=== PATIENT | female | born 1935 | race Caucasian/White ===

== ENCOUNTER → 2018-12-29 | Outpatient (CLI) | payer MEDICARE, OTHER ==
--- NOTE | 2018-12-29 16:03 | RAD ---
Examination: PET W CT SKULL TO MIDTHIGH History: Solitary pulmonary nodule initial evaluation Comparison/Correlation: 12/17/2011 CT abdomen and pelvis without contrast FINDINGS: Net dose 16.5 mCi F-18 FDG was administered intravenously for purposes of PET/CT exam. Blood glucose level at the time of radiotracer administration was 114 mg/dL. Imaging was performed from the skull base to the proximal thighs. Hepatic reference uptake is SUV max of 2.5 . Visualized head and neck is unremarkable with no abnormal uptake. At the anterior left upper lung field on axial image 34, there is a 0.6 cm diameter noncalcified nodule which does not have uptake. It is below limits of PET resolution however. On axial image 88, there is a 1.1 cm transverse by 0.8 cm anteroposterior nodule. SUV max of 3 is present. It is located along the inferior aspect of the right hilum No enlarged thoracic lymph nodes. Uptake of radiotracer along abdomen and pelvis is unremarkable. Multiple small calculi within the gallbladder are present near the neck. No radiopaque collecting system calculi. Abdominal aortic diameter is unremarkable. IMPRESSION: Mild uptake involving a right infrahilar pulmonary nodule. No uptake involving the left upper lung nodule. These are of indeterminate significance. Consider interval follow-up CT to assess stability. PQRS Compliance Statement: One or more of the following individualized dose reduction techniques were utilized for this examination: 1. Automated exposure control 2. Adjustment of the mA and/or kV according to patient size 3. Use of iterative reconstruction technique Electronically signed by: Ace Broderick MD (12/29/2018 4:00 PM) [facility]
== END | disposition home or self-care (01) ==
LOC: PETSC 09:30
PROVIDERS: ATTEND Family Medicine
DX: R91.1 Solitary pulmonary nodule (principal); K80.20 Calculus of gallbladder without cholecystitis without obstruction
CPT/HCPCS: 78815; A9552

== ENCOUNTER → 2019-04-10 | Outpatient (CLI) | payer MEDICARE, OTHER ==
--- NOTE | 2019-04-10 15:41 | RAD ---
CT CHEST WO CONTRAST Indication: Lung nodule. Exposure: One or more of the following individualized dose reduction techniques were utilized for this examination: 1. Automated exposure control 2. Adjustment of the mA and/or kV according to patient size 3. Use of iterative reconstruction technique. Technique: Standard imaging without intravenous contrast. Comparison: PET/CT scan of 12/29/2018. FINDINGS: Left upper lobe pulmonary nodule measures 8 mm, series 8, image 54. This demonstrates a groundglass morphology. Size is unchanged since previous study, as is appearance. Right infrahilar pulmonary nodule in the right lower lobe measures 15 mm x 13 mm on series 8, image 178. This is unchanged since the previous exam. Right upper lobe pulmonary nodule, series 8, image 170, probably unchanged although there was motion degradation on that exam limiting comparison of smaller nodules. Right lower lobe nodule, series 8, image 173 measures 7 x 4 mm, probably unchanged. Other small subcentimeter nodules are also seen in the right lung. Left lung base nodule, series 8, image 186 measures about 4 mm, difficult to see on prior study. Left lower lobe nodule measuring about 4 mm on series 8, image 140 grossly similar to previous study. No evidence of pneumothorax. Trachea and mainstem bronchi are patent. Limited vascular exam without contrast. Ascending aorta measures about 3.5 cm compatible with mild ectasia. Aorta is calcified. No gross aneurysm. Coronary artery calcifications. No evidence of pathologic axillary, hilar or mediastinal lymph node enlargement. Mild granulomatous mediastinal and hilar lymph node calcifications. No evidence of pleural effusion. No evidence of pericardial effusion. Degenerative spondylosis. No evidence of an acute fracture or subluxation. No aggressive bone destruction is seen. Scans to the upper abdomen are limited due to technique. Some density within the gallbladder near the neck and through the neck, may represent sludge or poorly calcified stones. IMPRESSION: 1. Multiple pulmonary nodules, appear grossly stable in size as compared with December 29, 2018. Recommend continued CT chest follow-up in 6 months. 2. Possible gallbladder sludge or cholelithiasis. Electronically signed by: Aman Staton MD (04/10/2019 3:38 PM) [id number]
== END | disposition home or self-care (01) ==
LOC: CT 09:08
PROVIDERS: ATTEND Internal Medicine Pulmonary Disease
DX: I70.0 Atherosclerosis of aorta (principal); R91.8 Other nonspecific abnormal finding of lung field; I25.10 Atherosclerotic heart disease of native coronary artery without angina pectoris; M47.814 Spondylosis without myelopathy or radiculopathy, thoracic region
CPT/HCPCS: 71250

== ENCOUNTER → 2019-05-09 | Outpatient (CLI) | payer MEDICARE, OTHER ==
[~2019-05-09] MED LIST: LIDOCAINE 2%/EPI 1:100,000 20 ML VIAL. ONE
--- NOTE | 2019-05-09 17:54 | RAD ---
Examination: 1. Diagnostic right breast ultrasound. 2. Right breast stereotactic core needle biopsy. 3. Right breast postprocedure mammogram. INDICATION: 83-year-old woman recommended for biopsy of developing calcifications in the posterior upper-outer quadrant right breast with a sonographic correlate. COMPARISON: Right diagnostic mammogram and targeted breast ultrasound of 04/23/2019, and screening mammogram of 10/19/2017. TECHNIQUE AND FINDINGS: Initial diagnostic right breast ultrasound was performed and identified 2 oval masses at the right 10:00 position 7 cm from the nipple respectively measuring 7 and 3 mm in diameter. These likely correlate with the ovoid clusters of developing calcification in the posterior upper outer right breast recalled from screening in ultimately recommended for biopsy but out of of an abundance of caution for minimizing the risk of nontarget biopsy, I elected to pursue biopsy of the suspicious calcifications with stereotactic imaging guidance, rather than by ultrasound despite the presence of a potentially suitable sonographic target. Informed consent was obtained and an appropriate procedural pause observed. Using standard sterile technique, stereotactic imaging guidance and local anesthesia with buffered lidocaine and lidocaine with epinephrine, multiple vacuum-assisted 9 gauge core biopsy samples of the calcifications in the posterior upper outer right breast were obtained from a craniocaudal approach. Intraprocedural stereotactic images showed a decrease in number of targeted calcifications following tissue sampling. Specimen radiograph confirmed presence of of targeted calcifications in the tissue sample after which a biopsy marker was deployed in the right breast. Hemostasis was then assured with direct breast compression for 10 minutes and the puncture site was dressed. 2-D postprocedure right mammogram in the CC, ML and MLO projections confirmed satisfactory sampling of the calcifications in the upper outer right breast with residual suspicious calcifications in the breast. There was apparent cephalad migration of the juliette shaped biopsy marker into the subcutaneous fat following withdrawal of the needle guide. Since the residual calcifications can serve as the target for any subsequent follow-up invasive procedures, I elected not to place an additional biopsy marker at this visit. Patient tolerated the procedure without incident. There were no apparent complications. Postprocedure instructions were reviewed and patient discharged in stable condition to follow-up with her primary care physician. IMPRESSION: Successful stereotactic biopsy of developing calcifications in the posterior upper outer quadrant right breast. Pathology results are pending. An addendum will be issued once pathology results become available.
--- NOTE | 2019-05-11 15:07 | PATHOLOGY ---
[facility] Accession Number: [id number] . 01 Material submitted: . breast - RIGHT BREAST CALCIFICATION. Modifiers: right . 01 Clinical history: . Right breast calcifications . 02 Diagnosis: Breast tissue, right breast needle biopsies: - Ductal carcinoma in situ, low-grade, cribriform type, with associated calcifications. - Periductal and focal confluent stromal fibrosis with focal mild duct ectasia. (JPM:kiln burner; 05/10/2019) MBR 05/10/2019 1544 Local . 02 Comment: Sections of the right breast needle biopsy reveal multiple segments of breast tissue. There are a few small foci of low-grade ductal carcinoma in situ of cribriform type. The largest of these foci measure approximately 3 mm in greatest dimension. DCIS shows associated pleomorphic calcifications. There is no evidence of invasive carcinoma. Breast prognostic studies will be obtained on block A4, the results of which will be reported separately. The case is also examined by Dr. Kaur, and concurs with the diagnosis. (JPM:kiln burner; 05/10/2019) . 02 Electronically signed: . Clinton Swann MD, Pathologist NPI- [id number] . 01 Gross description: . The specimen is received in formalin, labeled "Valery Bettencourt, right breast". Received are multiple needle cores of fibrofatty tissue measuring 2.8 x 2.7 x 0.6 cm in aggregate dimensions. Also received within the containers a plastic cassette containing multiple needle cores of fibrofatty tissue measuring 3.0 x 2.8 x 0.6 cm in aggregate dimensions. The suspect tissue is transferred to cassettes A1 and A2, with the remainder of the specimen submitted in cassettes A3 and A4. The cold ischemic time is 15 minutes. The total formalin for Station time is 10 hours and 40 minutes. (CAA; 05/09/2019) QAC/QAC 05/09/2019 1727 Local . 02 Pathologist provided ICD-10: D05.11, N60.31, N60.41 . 02 CPT . 114190 Specimen Comment: A courtesy copy of this report has been sent to [phone] Specimen Comment: [phone], Specimen Comment: Report sent to ,DR BABB / DR MILLER Performed at: 01 [facility] [address], [place] [id number] MD Alejandro Spear MD Phone: [phone] Performed at: [address] [facility] [address] [place] [id number] MD Clinton Swann MD Phone: [phone]
== END ==
LOC: US 09:52
PROVIDERS: ATTEND Surgery
DX: R92.8 Other abnormal and inconclusive findings on diagnostic imaging of breast (principal); D05.11 Intraductal carcinoma in situ of right breast; N60.31 Fibrosclerosis of right breast
CPT/HCPCS: 19081; 76641; 77022; 77065; C1713; 19085

== ENCOUNTER → 2019-05-31 | Day surgery (SDC) | payer MEDICARE, OTHER ==
[~2019-05-31] VITALS: Ht 167.6 cm; Wt 76.5 kg
[~2019-05-31] MED LIST changes: +ACETAMINOPHEN 500 MG TABLET PO ONE; +AMLO1TAB5 PO; +ASCO500C PO; +BUPIVACAINE-EPI 0.25%-1:200000 MPF 30 ML VIAL. INJ ONE; +CHOL3000 PO; +FERR325T14 PO; +HYDR-3164 PO; +HYDROcodone/APAP 5/325MG 1 TAB TABLET PO ONE; +HYDROmorphone 2 MG/ML VIAL IV PRN; +IV RINGERS,LACTATED 1000ML 1,000 ML IV SCH; +LEVO88TA4 PO; +LIDOCAINE 1% PF 2 ML VIAL. ID PRN; -LIDOCAINE 2%/EPI 1:100,000 20 ML VIAL. ONE; +LISI-338 PO; +MORPHINE SULFATE 2 MG/ML VIAL. IV PRN; +MULT-650 PO; +ONDANSETRON PF 4 MG/2 ML VIAL. IV PRN; +PROCHLORPERAZINE 10 MG/2 ML VIAL. IV PRN; +UBID100C26 PO; +ceFAZolin SODIUM IV Push 1 GM VIAL. IVP ONE; +fentaNYL PF VIAL 100 MCG/2 ML VIAL IV PRN
--- NOTE | 2019-06-04 17:06 | PATHOLOGY ---
[facility] Accession Number: [id number] . 01 Material submitted: . breast - RT BREAST LUMP SINGLE STITCH SHORT DEEP SINGLE LONG LAT TWO STITCH MEDIAL. Modifiers: right . 01 Clinical history: . Ductal carcinoma in situ right breast . 02 Diagnosis: Breast tissue, wire-localized right breast lumpectomy: - RESIDUAL DUCTAL CARCINOMA IN SITU, LOW-GRADE, CRIBRIFORM TYPE, FOCAL. - DUCTAL CARCINOMA IN SITU IS APPROXIMATELY 2 MM FROM THE CLOSEST MEDIAL MARGIN OF RESECTION. - Previous biopsy site changes showing biopsy marker with recent and remote hemorrhage, fat necrosis, and reactive fibrosis. - Atypical lobular hyperplasia, focal, approximately 1 mm from the closest inked medial margin of resection. - Fibrocystic changes with focal intraductal micropapilloma and mild/moderate ductal epithelial hyperplasia. - Sclerosing adenosis, focal. . (JPM:mml; 06/04/2019) [facility] 06/04/2019 1201 Local . 02 Comment: Sections of the wire-localized right breast lumpectomy reveal focal residual low-grade cribriform type ductal carcinoma in situ. DCIS is focally present in 2 of 11 sections submitted, the largest focus measuring approximately 1 cm. DCIS is approximately 2 mm from the closest inked medial margin of resection. There is also focal atypical lobular hyperplasia, which is approximately 1 mm from the closest inked medial margin of resection. . (JPM:mml; 06/04/2019) . 02 Electronically signed: . Clinton Swann MD, Pathologist NPI- [id number] . 01 Gross description: . The specimen is received in formalin, labeled "Valery Bettencourt, right breast lump, single stitch short-deep, single long-lateral, two medium stitch-medial". Received in a radiographic compression container is a 63 g lumpectomy specimen measuring 9.5 cm from superficial/anterior to deep/posterior, 5.8 cm from superior to inferior, and 2.0 cm from medial to lateral. There is a localization wire present, which enters through the anterior/medial aspect. The specimen is inked as follows: Superior-blue, inferior-green, lateral-red, medial-yellow, superficial/anterior-black, deep/posterior-orange. Sectioning reveals a previous biopsy site measuring 2.8 x 0.8 x 0.8 cm. This site is 1.7 cm from the superficial/anterior margin, 5.0 cm from the deep/posterior margin, 0.4 cm from the medial margin, 0.9 cm from the lateral margin, 2.3 cm from the superior margin, and 1.5 cm from the inferior margin. 2.0 cm posterior to the previous biopsy site, a single cystic structure is identified measuring 0.3 cm filled with friable material. The remainder of the specimen displays bright yellow fibrofatty cut surfaces, with the fibrous tissue comprising approximately 10% of the specimen. The specimen is submitted representatively as follows: . A1 most superficial/anterior margin, bisected A2 most deep/posterior margin, trisected A3-A10 entire previous biopsy site submitted from anterior to posterior aspects A11 cystic structure located posterior to previous biopsy site. . The cold ischemic time is 17 minutes. The total formalin fixation time is 34 hours and 20 minutes. (CAA; 06/01/2019) QAC/QAC 06/04/2019 1213 Local . 02 Pathologist provided ICD-10: D05.11, N60.11, N60.21, N62 . 02 CPT . 216904 Specimen Comment: A courtesy copy of this report has been sent to [phone] Specimen Comment: Report sent to Performed at: [address], [place], [place] [id number] MD Alejandro Spear MD Phone: [phone] [facility]formed at: [facility] [address] [place], [place] [id number] MD Clinton Swann MD Phone: [phone]
== END | disposition home or self-care (01) ==
LOC: SURG 07:14
PROVIDERS: ATTEND Surgery
DX: R92.0 Mammographic microcalcification found on diagnostic imaging of breast (principal); Z53.9 Procedure and treatment not carried out, unspecified reason
CPT/HCPCS: 88307; J3490

== ENCOUNTER → 2019-05-31 | Day surgery (SDC) | payer MEDICARE, OTHER ==
[~2019-05-31] MED LIST changes: -ACETAMINOPHEN 500 MG TABLET PO ONE; -BUPIVACAINE-EPI 0.25%-1:200000 MPF 30 ML VIAL. INJ ONE; +BUPIVACAINE-EPI 0.25%-1:200000 MPF 30 ML VIAL. ONE; +DEXAMETHASONE SOD PHOS 4 MG/ML VIAL ONE; -HYDROcodone/APAP 5/325MG 1 TAB TABLET PO ONE; -HYDROmorphone 2 MG/ML VIAL IV PRN; -IV RINGERS,LACTATED 1000ML 1,000 ML IV SCH; -LIDOCAINE 1% PF 2 ML VIAL. ID PRN; +LIDOCAINE 2% PF 5 ML VIAL. ONE; -MORPHINE SULFATE 2 MG/ML VIAL. IV PRN; -ONDANSETRON PF 4 MG/2 ML VIAL. IV PRN; +ONDANSETRON PF 4 MG/2 ML VIAL. ONE; -PROCHLORPERAZINE 10 MG/2 ML VIAL. IV PRN; +PROPOFOL 20 ML IV ONE; +SEVOFLURANE 31 TO 60 MINUTES. IH ONE; +SUCCINYLCHOLINE 200 MG/10 ML VIAL. ONE; -fentaNYL PF VIAL 100 MCG/2 ML VIAL IV PRN; +fentaNYL PF VIAL 100 MCG/2 ML VIAL ONE
--- NOTE | 2019-05-31 11:35 | PDOC4 ---
Operative Note Operative Note Date: 05/31/2019 at 1133 Preoperative diagnosis: Right breast carcinoma in situ Postoperative diagnosis: Same Procedure: Right breast lumpectomy with needle localization Surgeon: Preston Specimen: Right breast tissue Dictation: Patient is a 83-year-old female who had an abnormal mammogram biopsy showed ductal carcinoma in situ. Procedure of right breast lumpectomy with needle localization was explained to the patient detail was benefits were also discussed including bleeding infection alternatives to this procedure also discussed with the patient who seemed to understand and gave both verbal and written consent to have the procedure performed. Patient was taken to the operating room placed in the supine position general anesthesia was initiated once patient was sleepy right breast was prepped and draped usual sterile fashi on. An incision at the insertion site of the needle was made with 15 blade scalpel is carried down through the subcutaneous tissue following the needle and wire down to the distal site all this was excised with electrocautery and sent to radiology where x-ray was performed which showed the specimen contained the calcifications as previously seen on the mammogram. The wound was then closed in 2 layers the deep layer running 3-0 Vicryl and the skin was reapproximated 4- 0 subcuticular Monocryl Mastisol Steri-Strips and island dressing was applied. Patient was awakened extubated in the operating room taken to recovery in stable condition all sponge instrument needle counts listed as correct estimated blood loss 10 mL LINSEY CLAYTON MD May 31, 2019 11:35
--- NOTE | 2019-05-31 11:37 | DISCH ---
DISCHARGE INSTRUCTIONS Condition on Discharge Condition on Discharge: Stable Activity After Discharge Activity Instructions for Disc: Avoid exertion Diet after Discharge Diet after Discharge: Regular Wound Incision Care Other wound/incision instructi: May shower in 24 hours Contacting the after DC Call your doctor for: If your condition worsens Follow-Up Follow up with: Dr. Clayton in 2 weeks LINSEY CLAYTON MD May 31, 2019 11:37
--- NOTE | 2019-05-31 11:38 | RAD ---
Right breast specimen radiograph INDICATION: Status post lumpectomy for right breast DCIS. Specimen radiograph requested to assess specimen adequacy. COMPARISON: Earlier same day right diagnostic mammogram. FINDINGS: The tissue specimen contains the juliette shaped biopsy marker and targeted residual calcifications which lie between the E5 and F5 holes on the grid. The biopsy marker lies between E8 and F8. Both the biopsy marker and the residual calcifications lie adjacent to the hook wire. IMPRESSION: Surgical specimen contains the targeted calcifications, biopsy marker and hook wire with residual calcifications between E5 and F5 and biopsy marker between E8 and F8. Report telephoned to the operating room at approximately 11:34 AM 05/31/2019.
[2019-05-31 12:44] VITALS: BP 148/62
--- NOTE | 2019-05-31 13:17 | RAD ---
Examination: Right breast needle localization with mammographic guidance. INDICATION: 83-year-old woman with new diagnosis right breast DCIS, requested for preoperative needle localization prior to segmental mastectomy. COMPARISON: Post biopsy mammogram of 05/09/2019. TECHNIQUE AND FINDINGS: Informed consent was obtained and an appropriate procedural pause observed including an appropriate skin marking preoperatively. Using standard sterile technique, mammographic imaging guidance and local anesthesia, a 5 cm Pryor needle was advanced from a craniocaudal approach into the upper outer right breast, targeting the residual calcifications still evident postbiopsy. Follow satisfactory confirmation of appropriate needle positioning, a hookwire was placed through the needle, the needle withdrawn an additional postprocedure images acquired. These showed satisfactory positioning of the wire relative to the biopsy marker and the residual calcifications. No apparent complications. Patient was discharged from the imaging suite in good condition to follow-up with her referring surgeon. IMPRESSION: Successful right breast needle localization of biopsy-proven malignant calcifications in the upper-outer quadrant right breast. A specimen radiograph is recommended. It should contain the hookwire, residual calcifications and juliette shaped biopsy marker.
== END | disposition home or self-care (01) ==
LOC: SURG 07:24
PROVIDERS: ATTEND Surgery
DX: D05.11 Intraductal carcinoma in situ of right breast (principal); I10 Essential (primary) hypertension; E11.9 Type 2 diabetes mellitus without complications; E03.9 Hypothyroidism, unspecified; D64.9 Anemia, unspecified; E78.00 Pure hypercholesterolemia, unspecified; Z87.39 Personal history of other diseases of the musculoskeletal system and connective tissue; Z79.84 Long term (current) use of oral hypoglycemic drugs; Z98.42 Cataract extraction status, left eye; Z98.41 Cataract extraction status, right eye; Z96.1 Presence of intraocular lens
CPT/HCPCS: 19125; 19281; 76098; A7015; J0330; J0690; J1100; J2001; J2405; J2704; J3490; J7120; J3010

== ENCOUNTER → 2019-09-04 | Outpatient (CLI) | payer MEDICARE, OTHER ==
[2019-05-31 12:44] VITALS: BP 148/62
[~2019-09-04] MED LIST changes: -BUPIVACAINE-EPI 0.25%-1:200000 MPF 30 ML VIAL. ONE; -DEXAMETHASONE SOD PHOS 4 MG/ML VIAL ONE; -LIDOCAINE 2% PF 5 ML VIAL. ONE; -ONDANSETRON PF 4 MG/2 ML VIAL. ONE; -PROPOFOL 20 ML IV ONE; -SEVOFLURANE 31 TO 60 MINUTES. IH ONE; -SUCCINYLCHOLINE 200 MG/10 ML VIAL. ONE; -ceFAZolin SODIUM IV Push 1 GM VIAL. IVP ONE; -fentaNYL PF VIAL 100 MCG/2 ML VIAL ONE
--- NOTE | 2019-09-04 12:31 | [facility]IC ---
EXAM: Dual energy x-ray absorptiometry (DEXA). HISTORY: Postmenopausal female presents for osteoporosis screening. COMPARISON: None. TECHNIQUE: Dual energy x-ray absorptiometry of the lumbar spine and left hip was performed. Calculation of bone mineral density based on standard deviations above or below the expected young adult normal value (T-score) was completed. FINDINGS: The average bone mineral density in the 1st through 4th lumbar vertebrae is 0.979 g/cmxcm, corresponding with a T-score of -0.6. The average total bone mineral density in the right hip is 0.836 g/cmxcm, corresponding with a T-score of -0.9. IMPRESSION: Normal bone mineral density. Note: Definitions established by the World Health Organization: 1. Normal: T-score is -1.0 or above. 2. Osteopenia: T-score is between -1.0 and -2.5 . 3. Osteoporosis: T-score is -2.5 or below. Electronically signed by: Kathy Banuelos MD (09/04/2019 12:28 PM) [id number]
== END | disposition home or self-care (01) ==
LOC: KCIC DEXA 11:22
PROVIDERS: ATTEND Internal Medicine Hematology & Oncology
DX: M81.0 Age-related osteoporosis without current pathological fracture (principal); M85.88 Other specified disorders of bone density and structure, other site; C50.411 Malignant neoplasm of upper-outer quadrant of right female breast
CPT/HCPCS: 77080

== ENCOUNTER → 2019-09-27 | Outpatient (CLI) | payer MEDICARE, OTHER ==
[2019-05-31 12:44] VITALS: BP 148/62
[2019-09-27 11:39] LABS: BASO % 1 % (0-3); EOS # 0.1 x10^3/uL (0.0-0.7); EOS % 1 % (0-3); HEMATOCRIT 37.2 % (36.0-47.0); HEMOGLOBIN 12.7 g/dL (12.0-15.5); LYMPH # 1.6 x10^3/uL (1.0-4.8); LYMPH % 23 % (24-48); MEAN CORPUSCULAR HEMOGLOBIN 31 pg (25-35); MEAN CORPUSCULAR HGB CONC 34 g/dL (31-37); MEAN CORPUSCULAR VOLUME 91 fL (79-100); MONO # 0.5 x10^3/uL (0.0-1.1); MONO % 8 % (0-9); NEUT # 4.8 x10^3/uL (1.8-7.7); NEUT % 68 % (31-73); PLATELET COUNT 268 x10^3/uL (140-400); RED BLOOD COUNT 4.08 x10^6/uL (3.50-5.40); RED CELL DISTRIBUTION WIDTH 13.6 % (11.5-14.5); WHITE BLOOD COUNT 7.1 x10^3/uL (4.0-11.0)
[2019-09-27 11:59] LABS: CALCIUM 9.4 mg/dL (8.5-10.1); GFR 52.8
[2019-09-27 12:04] LABS: ALBUMIN 3.5 g/dL (3.4-5.0); DIRECT BILIRUBIN 0.1 mg/dL (0.0-0.2); TOTAL BILIRUBIN 0.5 mg/dL (0.2-1.0); TOTAL PROTEIN 7.5 g/dL (6.4-8.2)
== END | disposition home or self-care (01) ==
LOC: ONCLAB 10:13
PROVIDERS: ATTEND Physician Assistant
DX: C50.411 Malignant neoplasm of upper-outer quadrant of right female breast (principal)
CPT/HCPCS: 36415; 80048; 80076; 83615; 85025

== ENCOUNTER → 2019-10-05 | Outpatient (CLI) | payer MEDICARE, OTHER ==
[2019-05-31 12:44] VITALS: BP 148/62
--- NOTE | 2019-10-05 16:08 | RAD ---
Examination: CT CHEST WO CONTRAST History: Reason: LUNG NODULES / Spl. Instructions: / History: Comparison/Correlation: 12/29/2018 PET/CT exam, 04/10/2019 CT chest without contrast Findings: Axial images of the chest were obtained without contrast. Sagittal and coronal reformatted images were provided. Anterior left upper lung field nodule measuring 0.6 cm diameter is present with groundglass appearance similar to the previous exam. No significant change in size. Calcified granuloma involving the left upper lung field laterally measuring 0.4 cm diameter similar to the prior exam. Few punctate nodules at the right lateral mid thoracic level are stable. Right infrahilar noncalcified pulmonary nodule measuring up to 1.1 cm x 0.8 cm is stable. Calcific involvement of the left main, left anterior descending, and right coronary arteries is noted. Calcified left hilar lymph node is present. No pleural or pericardial effusion. High density within the deep aspect left adrenal gland adenomatous involvement is present. Of the gallbladder the gallbladder neck which appears represent small calculi noted. Right upper outer breast irregularly marginated masslike density measuring 2.6 cm x 1.4 cm is present. Impression: No change in pulmonary nodules since 12/29/2018 PET/CT exam. Interval follow-up in 9 months to assess stability recommended. Cholelithiasis. Right upper-outer breast irregular marginated soft tissue density is new since the previous CT exam. This corresponds to site of needle localization dated 05/31/2019. Correlate with clinical history. PQRS Compliance Statement: One or more of the following individualized dose reduction techniques were utilized for this examination: 1. Automated exposure control 2. Adjustment of the mA and/or kV according to patient size 3. Use of iterative reconstruction technique Electronically signed by: Ace Broderick MD (10/05/2019 4:05 PM) [facility]
== END | disposition home or self-care (01) ==
LOC: CT 10:13
PROVIDERS: ATTEND Internal Medicine Pulmonary Disease
DX: R91.1 Solitary pulmonary nodule (principal); K80.20 Calculus of gallbladder without cholecystitis without obstruction; N63.0 Unspecified lump in unspecified breast; J98.4 Other disorders of lung
CPT/HCPCS: 71250

== ENCOUNTER → 2019-10-25 | Outpatient (CLI) | payer MEDICARE, OTHER ==
[2019-05-31 12:44] VITALS: BP 148/62
[2019-10-25 11:13] LABS: CALCIUM 9.1 mg/dL (8.5-10.1); CREATININE 0.9 mg/dL (0.6-1.0); GFR 59.5; POTASSIUM 3.8 mmol/L (3.5-5.1)
[2019-10-25 11:19] LABS: ALBUMIN 3.4 g/dL (3.4-5.0); ALBUMIN/GLOBULIN RATIO 0.9 (1.0-1.7); TOTAL BILIRUBIN 0.5 mg/dL (0.2-1.0); TOTAL PROTEIN 7.4 g/dL (6.4-8.2)
== END | disposition home or self-care (01) ==
LOC: ONCLAB 10:36
PROVIDERS: ATTEND Physician Assistant
DX: C50.411 Malignant neoplasm of upper-outer quadrant of right female breast (principal); Z79.899 Other long term (current) drug therapy
CPT/HCPCS: 36415; 80053; 82306; 83615

== ENCOUNTER → 2019-11-07 | Outpatient (CLI) | payer MEDICARE, OTHER ==
[2019-05-31 12:44] VITALS: BP 148/62
--- NOTE | 2019-11-07 16:33 | RAD ---
DATE: 11/07/2019 9:29 AM EXAM: MAMMO OMARI DIAG RT HISTORY: Six-month follow-up post lumpectomy and radiation for right breast low-grade DCIS, cribriform type. She is currently on Letrozole. COMPARISON: Bilateral mammogram of 03/22/2019, right stereotactic biopsy images of 05/09/2019 including the postprocedure right diagnostic mammogram CC and MLO views of the right breast were performed. Breast tomosynthesis was performed in CC and MLO projections. This study was interpreted with the benefit of Computerized Aided Detection (CAD). FINDINGS: Breast Density: SCATTERED The breast parenchyma shows scattered fibroglandular densities. Breast parenchyma level B Interval surgical scar in the upper outer right breast is present with absence of the biopsy marker and targeted residual calcifications. Right breast skin thickening is also newly apparent, consistent with benign post treatment changes. IMPRESSION: Benign posttreatment changes in the right breast. No evidence of malignancy. BI-RADS CATEGORY: 2 BENIGN FINDING(S) RECOMMENDED FOLLOW-UP: 6M 6 MONTH FOLLOW-UP six-month follow-up recommended to resume annual mammographic screening PQRS compliance statement: Patient information was entered into a reminder system with a target due date for the next mammogram. Mammography is a sensitive method for finding small breast cancers, but it does not detect them all and is not a substitute for careful clinical examination. A negative mammogram does not negate a clinically suspicious finding and should not result in delay in biopsying a clinically suspicious abnormality. "Our facility is accredited by the [employer] Mammography Program."
== END | disposition home or self-care (01) ==
LOC: MAMMO 09:19
PROVIDERS: ATTEND Physician Assistant
DX: C50.411 Malignant neoplasm of upper-outer quadrant of right female breast (principal); R92.1 Mammographic calcification found on diagnostic imaging of breast; R23.4 Changes in skin texture; N64.89 Other specified disorders of breast
CPT/HCPCS: 77065; G0279; 77061

== ENCOUNTER → 2020-03-17 | Outpatient (CLI) | payer MEDICARE, OTHER ==
[2019-05-31 12:44] VITALS: BP 148/62
--- NOTE | 2020-03-17 13:04 | RAD ---
EXAM: Chest CT without intravenous contrast. HISTORY: Pulmonary nodule follow-up. TECHNIQUE: Computed tomographic images of the chest were obtained without contrast. Multiplanar refor matting was performed. *One or more of the following individualized dose reduction techniques were utilized for this examina tion: 1. Automated exposure control. 2. Adjustment of the mA and/or kV according to patient size. 3. Use of iterative reconstruction technique. COMPARISON: 10/05/2019 and 04/10/2019. FINDINGS: The heart is normal in size. There is calcified atherosclerotic plaque involving the byers ry arteries. There are few calcified mediastinal and hilar granulomas. There is no suspicious noncalc ified mediastinal or hilar lymph node. There is stable trace anterior pericardial fluid or pericardia l thickening. There is stable distal paraesophageal lymph nodes. There is aortic atherosclerosis. There is no pneumothorax or pleural effusion. There is left basilar atelectasis. There is a stable 8 mm groundglass nodule with adjacent 3 mm groundglass nodule within the lateral left upper lobe (serie s 8, images 47 and 50). There is a stable 6 mm solid nodule within the right lower lobe (series 8, im age 177). There is a stable 5 mm solid nodule within the right middle lobe (series 8, image 170). The re is a stable 5 mm irregular nodular opacity within the lateral right upper lobe (series 8, image 13 7). There is a stable 3 mm nodule within the lateral right upper lobe (series 8, image 72). There are few additional tiny peripheral and pleural-based nodular opacities within both lungs which are also stable in appearance. There is lingular pleural parenchymal scarring. 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 There is n o acute finding involving the upper abdomen. There is stable underwent thickening or small benign adr enal adenomas. There is suspected gallbladder sludge. There are degenerative changes throughout the s pine. There is no suspicious osseous lesion. IMPRESSION: 1. Multilevel stable bilateral pulmonary nodules, the largest of which include a groundglass nodule m easuring 8 mm within the left upper lobe and 6 mm nodule within the right lower lobe. The year of sta bility favors benignity. However, continued follow-up with a chest CT in 6 months is recommended to c onfirm longer-term stability. 2. No acute thoracic finding. Electronically signed by: Kathy Banuelos MD (03/17/2020 1:02 PM) [id number]
== END ==
LOC: CT 10:09
PROVIDERS: ATTEND Internal Medicine Pulmonary Disease
DX: R91.8 Other nonspecific abnormal finding of lung field (principal); J84.10 Pulmonary fibrosis, unspecified; I25.10 Atherosclerotic heart disease of native coronary artery without angina pectoris; I70.0 Atherosclerosis of aorta; J98.11 Atelectasis; J98.4 Other disorders of lung
CPT/HCPCS: 71250

== ENCOUNTER → 2020-05-12 | Outpatient (CLI) | payer MEDICARE, OTHER ==
[2019-05-31 12:44] VITALS: BP 148/62
[~2020-05-12] MED LIST changes: -LISI-338 PO; +LISI-517 PO
--- NOTE | 2020-05-12 18:48 | RAD ---
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 COMPARISON: Bilateral mammogram of 03/22/2019, right postprocedure mammogram of 05/09/2019 TECHNIQUE: CC and MLO views of both breasts were obtained with 2-D and 3-D technique. Images were pr ocessed by the [employer] computer-aided detection system. DENSITY: There are scattered fibroglandular densities. FINDINGS: Interval benign post lumpectomy changes in the upper-outer quadrant right breast with no residual suspicious calcifications identified. Left breast shows extensive coarse dystrophic type calcifications and a small cluster of coarse calci fications in the middle third upper outer quadrant left breast at the approximate 3:00 position 5 cm from the nipple. IMPRESSION: Probably benign findings. Recommend 6 month left diagnostic mammogram with magnification views. BI-RADS category 3 Probably benign Patient entered into a reminder system for annual screening mammogram. Electronically signed by: Xena Booker MD (05/12/2020 6:46 PM) [id number]
== END ==
LOC: MAMMO 12:40
PROVIDERS: ATTEND Internal Medicine Hematology & Oncology
DX: R92.1 Mammographic calcification found on diagnostic imaging of breast (principal)
CPT/HCPCS: 77066; G0279; 77062

== ENCOUNTER → 2020-09-19 | Outpatient (CLI) | payer MEDICARE, OTHER ==
[2019-05-31 12:44] VITALS: BP 148/62
--- NOTE | 2020-09-19 12:06 | RAD ---
PQRS Compliance Statement: One or more of the following individualized dose reduction techniques were utilized for this examinat ion: 1. Automated exposure control 2. Adjustment of the mA and/or kV according to patient size 3. Use of iterative reconstruction technique CT THORAX WO 09/19/2020 9:01 AM Indication: Lung nodule COMPARISON: CT chest 04/10/2019, 09/15/2019, 03/17/2020. TECHNIQUE: Multiple axial CT images of the chest were obtained without intravenous contrast. Coronal and sagittal reformats provided. FINDINGS: Stable 8 mm groundglass nodule in the left upper lobe (series 3, image 52). Stable 4 mm solid noncalc ified pulmonary nodule in the lateral segment left lower lobe (series 3, image 36). There is a 1.1 cm solid nodular opacity in the central right lower lobe (series 3, image 170) which is unchanged in ba ck to 04/10/2019. No new or enlarging solid noncalcified pulmonary nodules. No pleural effusions, pulm onary vascular congestion or pneumothorax. Three-vessel coronary vascular calcifications are present. Cholelithiasis. 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 No suspicious o sseous abnormality. IMPRESSION: 1. Stable 1.1 cm solid parenchymal nodule in the right hilum, Findings are stable from prior PET/CT f rom 12/29/2018 and presumed benign. No new or enlarging pulmonary nodules. 2. Stable 8 mm groundglass nodule in the left upper lobe. 2 year follow-up chest CT could be of benef it. Electronically signed by: Marci Oliver MD (09/19/2020 12:03 PM) [id number]
== END ==
LOC: CT 09:00
PROVIDERS: ATTEND Internal Medicine Pulmonary Disease
DX: R91.8 Other nonspecific abnormal finding of lung field (principal); K80.20 Calculus of gallbladder without cholecystitis without obstruction; I25.10 Atherosclerotic heart disease of native coronary artery without angina pectoris; D35.02 Benign neoplasm of left adrenal gland
CPT/HCPCS: 71250

== ENCOUNTER → 2020-12-01 | Outpatient (CLI) | payer MEDICARE, OTHER ==
[2019-05-31 12:44] VITALS: BP 148/62
[2020-12-01 10:19] LABS: BASO % 0 % (0-3); EOS # 0.1 x10^3/uL (0.0-0.7); EOS % 1 % (0-3); HEMATOCRIT 37.3 % (36.0-47.0); HEMOGLOBIN 12.5 g/dL (12.0-15.5); LYMPH # 1.8 x10^3/uL (1.0-4.8); LYMPH % 24 % (24-48); MEAN CORPUSCULAR HEMOGLOBIN 32 pg (25-35); MEAN CORPUSCULAR HGB CONC 34 g/dL (31-37); MEAN CORPUSCULAR VOLUME 94 fL (79-100); MONO # 0.6 x10^3/uL (0.0-1.1); MONO % 8 % (0-9); NEUT # 5.1 x10^3/uL (1.8-7.7); NEUT % 66 % (31-73); PLATELET COUNT 243 x10^3/uL (140-400); RED BLOOD COUNT 3.98 x10^6/uL (3.50-5.40); RED CELL DISTRIBUTION WIDTH 12.9 % (11.5-14.5); WHITE BLOOD COUNT 7.6 x10^3/uL (4.0-11.0)
[2020-12-01 10:29] LABS: CALCIUM 9.4 mg/dL (8.5-10.1); CREATININE 0.9 mg/dL (0.6-1.0); GFR 59.4; POTASSIUM 4.2 mmol/L (3.5-5.1)
[2020-12-01 10:35] LABS: ALBUMIN 3.5 g/dL (3.4-5.0); ALBUMIN/GLOBULIN RATIO 0.9 (1.0-1.7); TOTAL BILIRUBIN 0.5 mg/dL (0.2-1.0); TOTAL PROTEIN 7.3 g/dL (6.4-8.2)
== END ==
LOC: ONCLAB 10:05
PROVIDERS: ATTEND Physician Assistant
DX: C50.411 Malignant neoplasm of upper-outer quadrant of right female breast (principal); M89.9 Disorder of bone, unspecified
CPT/HCPCS: 36415; 80053; 82306; 83615; 85025

== ENCOUNTER → 2021-06-08 | Outpatient (CLI) | payer MEDICARE, OTHER ==
[2019-05-31 12:44] VITALS: BP 148/62
[~2021-06-08] MED LIST changes: -LISI-517 PO; +LISI5TAB15 PO
[2021-06-08 10:48] LABS: BASO % 1 % (0-3); EOS # 0.1 x10^3/uL (0.0-0.7); EOS % 1 % (0-3); HEMATOCRIT 37.5 % (36.0-47.0); HEMOGLOBIN 12.4 g/dL (12.0-15.5); LYMPH # 1.4 x10^3/uL (1.0-4.8); LYMPH % 19 % (24-48); MEAN CORPUSCULAR HEMOGLOBIN 31 pg (25-35); MEAN CORPUSCULAR HGB CONC 33 g/dL (31-37); MEAN CORPUSCULAR VOLUME 93 fL (79-100); MONO # 0.5 x10^3/uL (0.0-1.1); MONO % 7 % (0-9); NEUT # 5.3 x10^3/uL (1.8-7.7); NEUT % 72 % (31-73); PLATELET COUNT 241 x10^3/uL (140-400); RED BLOOD COUNT 4.02 x10^6/uL (3.50-5.40); RED CELL DISTRIBUTION WIDTH 12.6 % (11.5-14.5); WHITE BLOOD COUNT 7.3 x10^3/uL (4.0-11.0)
[2021-06-08 11:05] LABS: CALCIUM 9.5 mg/dL (8.5-10.1); CREATININE 0.9 mg/dL (0.6-1.0); GFR 59.4; POTASSIUM 4.3 mmol/L (3.5-5.1)
[2021-06-08 11:11] LABS: ALBUMIN 3.8 g/dL (3.4-5.0); ALBUMIN/GLOBULIN RATIO 1.2 (1.0-1.7); TOTAL BILIRUBIN 0.4 mg/dL (0.2-1.0)
== END ==
LOC: ONCLAB 10:24
PROVIDERS: ATTEND Internal Medicine Hematology & Oncology
DX: C50.411 Malignant neoplasm of upper-outer quadrant of right female breast (principal)
CPT/HCPCS: 36415; 80053; 83615; 85025